=== PATIENT | female | born 1995 | race Caucasian/White ===

== ENCOUNTER → 2020-08-04 | Outpatient (CLI) | payer OTHER | END | disposition home or self-care (01) | LOC: LAB 12:16 | PROVIDERS: ATTEND Student in an Organized Health Care Education/Training Program | DX: Z20.9 Contact with and (suspected) exposure to unspecified communicable disease (principal) | CPT/HCPCS: 36415; 86706; 86735; 86762; 86765; 86787 ==

== ENCOUNTER → 2021-03-28 | Outpatient (CLI) | payer OTHER | END | disposition home or self-care (01) | LOC: LAB 16:04 | PROVIDERS: ATTEND Physician Assistant | DX: Z20.9 Contact with and (suspected) exposure to unspecified communicable disease (principal) | CPT/HCPCS: 36415; 86706 ==